=== PATIENT | male | born 1990 | race African-American/Black ===

== ENCOUNTER 2017-03-07 10:20 | Emergency (ER) | payer OTHER ==
[~2017-03-07] VITALS: Ht 175.3 cm; Wt 72.6 kg
[~2017-03-07 10:20] MED LIST: AMOXICILLIN 50500 M1 PO; APAP/CODEINE ELI5 M1 OR; BACTRIM DS TAB1 EACH PO; IBUPROFEN 600600 M1 PO; KEFLEX500 MG PO; MURINE EAR WAX15 ML OT; NOHOMEMEDICATIONS; NORCO 5-325 TA1 EACH PO; PERCOCET 5-3251 EACH PO; TRAMADOL 50 MG50 MG PO
[2017-03-07 10:21] VITALS: BP 128/70
[2017-03-07] MEDS ORDERED: MOBIC15 MG PO (10:37)
[2017-03-07] MEDS ORDERED: PENICILLIN VK500 M1 PO (10:37)
== END 2017-03-07 10:37 | disposition home or self-care (01) ==
LOC: ER 10:20
DX: J02.0 Streptococcal pharyngitis (principal); J45.909 Unspecified asthma, uncomplicated

== ENCOUNTER 2019-09-22 21:13 | Emergency (ER) | payer OTHER ==
[~2019-09-22] VITALS: Ht 175.3 cm; Wt 65.8 kg
[~2019-09-22 21:13] MED LIST changes: +MOBIC15 MG PO; +PENICILLIN VK500 M1 PO
[2019-09-22] MEDS ORDERED: MOBIC7.5 MG PO (22:14)
[2019-09-22 22:47] VITALS: BP 111/56
== END 2019-09-22 22:50 | disposition home or self-care (01) ==
LOC: ER 21:13
DX: M79.605 Pain in left leg (principal); J45.909 Unspecified asthma, uncomplicated; F17.210 Nicotine dependence, cigarettes, uncomplicated; V89.2XXA Person injured in unspecified motor-vehicle accident, traffic, initial encounter; Y93.89 Activity, other specified; Y92.89 Other specified places as the place of occurrence of the external cause; Y99.8 Other external cause status

== ENCOUNTER 2021-09-13 22:10 | Emergency (ER) | payer OTHER ==
[~2021-09-13] VITALS: Ht 177.8 cm; Wt 67.1 kg
[~2021-09-13 22:10] MED LIST changes: +MOBIC7.5 MG PO
[2021-09-14] MEDS ORDERED: PENICILLIN V P500 MG PO (00:34)
[2021-09-14 01:09] VITALS: BP 118/70
== END 2021-09-14 01:10 | disposition home or self-care (01) ==
LOC: ER 22:10
DX: K04.7 Periapical abscess without sinus (principal); F17.210 Nicotine dependence, cigarettes, uncomplicated; J45.909 Unspecified asthma, uncomplicated